=== PATIENT | female | born 1950 | race Caucasian/White ===

== ENCOUNTER 2018-04-27 10:05 | Day surgery (SDC) | payer OTHER ==
[~2018-04-27] VITALS: Ht 170.2 cm; Wt 77.9 kg
[~2018-04-27 10:05] MED LIST: GABA600 PO; HYDR1TAB94; METO50 PO
[2018-04-27] MEDS ORDERED: LISI20 PO (10:51)
[2018-04-27] MEDS ORDERED: ESOM20 (10:52)
== END 2018-04-27 17:17 | disposition home or self-care (01) ==
LOC: ORSCSDS 10:05
PROVIDERS: Orthopaedic Surgery
PROC: 0LQ14ZZ Repair Right Shoulder Tendon, Percutaneous Endoscopic Approach (ICD-10-PCS; principal; 2018-04-27 12:00)
PROC: 0RNJ4ZZ Release Right Shoulder Joint, Percutaneous Endoscopic Approach (ICD-10-PCS; principal; 2018-04-27 12:00)
PROC: 0LS14ZZ Reposition Right Shoulder Tendon, Percutaneous Endoscopic Approach (ICD-10-PCS; principal; 2018-04-27 12:00)
DX: S46.011A Strain of muscle(s) and tendon(s) of the rotator cuff of right shoulder, initial encounter (principal); S46.101A Unspecified injury of muscle, fascia and tendon of long head of biceps, right arm, initial encounter; M75.41 Impingement syndrome of right shoulder; M19.011 Primary osteoarthritis, right shoulder; I10 Essential (primary) hypertension; I48.91 Unspecified atrial fibrillation; M79.7 Fibromyalgia; J44.9 Chronic obstructive pulmonary disease, unspecified; G47.33 Obstructive sleep apnea (adult) (pediatric); Z79.899 Other long term (current) drug therapy; Z87.891 Personal history of nicotine dependence
CPT/HCPCS: C1713; J0171; J1100; J2250; J2370; J2405; J2710; J3010; J7120

== ENCOUNTER 2019-04-02 13:41 | Emergency (ER) | payer OTHER ==
[~2019-04-02] VITALS: Ht 172.7 cm; Wt 81.2 kg
[~2019-04-02 13:41] MED LIST changes: +ALBU90OI61 INH; +ALLERCLEAR10 MG PO; +ATOR40TA PO; +Aspirin EC81 MG PO; +BIOTIN5000 MC1 PO; +CALTRATE 600+D1 EAC1 PO; +CLIN300 PO; +ESOM20; +Hair, Skin & N1 EACH PO; +LISI20 PO; +MELO7.5 PO; +Metoprolol Tar100 MG PO; +Nexium40 MG PO; +Norco 10-325 T1 EACH PO; +Prevacid Soluta30 MG PO; +Toviaz4 MG PO; +ZOLP10 PO; +Zantac150 MG PO
[2019-04-02 14:32] LABS: BASOPHILS ABSOLUTE AUTO 0.06 K/mm3 (0.00-0.23); BASOPHILS PERCENT AUTO 1 % (0-2); EOSINOPHILS ABSOLUTE AUTO 0.36 K/mm3 (0.00-0.68); EOSINOPHILS PERCENT AUTO 5 % (0-6); Hematocrit 39.8 % (33.0-51.0); IMMATURE GRAN ABSOLUTE AUTO 0.02 K/mm3 (0.00-0.10); IMMATURE GRAN PERCENT AUTO 0 % (0-1); LYMPHOCYTES ABSOLUTE AUTO 3.66 K/mm3 (0.84-5.20); LYMPHOCYTES PERCENT AUTO 48 % (21-46); MONOCYTES ABSOLUTE AUTO 0.76 K/mm3 (0.16-1.47); MONOCYTES PERCENT AUTO 10 % (4-13); Mean Corpuscular HGB 29.5 pg (26.0-34.0); Mean Corpuscular HGB Conc 32.7 g/dL (31.5-36.5); Mean Corpuscular Volume 91 fL (80-100); Mean Platelet Volume 11.9 fL (9.1-12.4); NEUTROPHILS ABSOLUTE AUTO 2.72 K/mm3 (1.96-9.15); NEUTROPHILS PERCENT AUTO 36 % (41-73); Platelet Count 215 K/mm3 (150-400); RDW Coefficient Variation 13.9 % (11.7-14.2); RDW Standard Deviation 46.2 fL (35.1-46.3); White Blood Cell Count 7.58 K/mm3 (4.00-11.30)
[2019-04-02 14:56] LABS: Troponin I <0.015 ng/mL (0.000-0.040)
[2019-04-02 15:00] LABS: Alanine Aminotransfer (ALT/SGP 28 U/L (12-78); Albumin, Blood 3.9 g/dL (3.4-5.0); Albumin/Globulin Ratio 1.3 (0.8-1.8); Alk Phos 66 U/L (50-136); Anion Gap 7 mmol/L (6-16); Aspartate Aminotrans (AST/SGOT 18 U/L (12-37); Blood Urea Nitrogen 21 mg/dL (8-24); Bun/Creatinine Ratio 21.1 (12.0-20.0); CO2, Blood 25 mmol/L (21-32); Calcium, Blood 8.7 mg/dL (8.5-10.1); Chloride, Blood 111 mmol/L (98-108); Glomerular Filtration Rate 59 (60-); Glucose, Blood 156 mg/dL (70-99); Potassium, Blood 4.1 mmol/L (3.5-5.5); Sodium, Blood 143 mmol/L (136-145); Total Protein, Blood 6.9 g/dL (6.4-8.2)
[2019-06-01] MEDS ORDERED: Toviaz4 MG PO (16:01)
== END 2019-04-02 15:54 | disposition home or self-care (01) ==
LOC: ER 13:41
PROVIDERS: Physician Assistant
DX: S90.32XA Contusion of left foot, initial encounter (principal); R07.89 Other chest pain; I10 Essential (primary) hypertension; I48.91 Unspecified atrial fibrillation; M19.90 Unspecified osteoarthritis, unspecified site; Z88.1 Allergy status to other antibiotic agents; Z88.2 Allergy status to sulfonamides; Z88.0 Allergy status to penicillin; Z79.899 Other long term (current) drug therapy; Z87.891 Personal history of nicotine dependence; X58.XXXA Exposure to other specified factors, initial encounter
CPT/HCPCS: 36415; 71046; 73630; 80053; 84484; 85025; 93005; 93010; 99284-25

== ENCOUNTER 2019-06-02 06:48 | Day surgery (SDC) | payer OTHER ==
[~2019-06-02] VITALS: Ht 172.7 cm; Wt 82.0 kg
--- NOTE | 2019-06-02 10:30 | NUR ---
ATTEMPTED TO DEFLATE TR BAND. 4CC OF AIR DEPLOYED. SMALL AMOUNT OF BLEEDING NOTED. TR BAND REINFLATED. NO BLEEDING. SOFT AND NONTENDER. VSS. NADN. PT AND FAMILY VERBALIZES UNDERSTANDING WRITTEN AND VERBAL ORDERS.
--- NOTE | 2019-06-02 10:59 | NUR ---
PT TR BAND FULLY DEFLATED. NO BLEEDING OR HEMATOMA NOTED. TOLERATES WELL. VSS. NADN. CALL LIGHT WITHIN REACH.
--- NOTE | 2019-06-02 11:37 | NUR ---
PT DRESSES SELF WITHOUT DIFF. NADN. VSS. R RADIAL TR BAND REMOVED. DOT DRESSING IN PLACE. WITH SPLINT. TOLERATES WELL.
--- NOTE | 2019-06-02 11:47 | NUR ---
PT IV DC'C. CATH INTACT. PRESSURE DSG IN PLACE. PT DC TO HOME VIA S/O BY W/C.
== END 2019-06-02 11:50 | disposition home or self-care (01) ==
LOC: MHTC 06:48
DX: R07.9 Chest pain, unspecified (principal); R94.39 Abnormal result of other cardiovascular function study; R06.00 Dyspnea, unspecified; I77.1 Stricture of artery; I10 Essential (primary) hypertension; J44.9 Chronic obstructive pulmonary disease, unspecified; M06.9 Rheumatoid arthritis, unspecified; K21.9 Gastro-esophageal reflux disease without esophagitis; G47.30 Sleep apnea, unspecified; Z87.891 Personal history of nicotine dependence; Z88.0 Allergy status to penicillin; Z88.1 Allergy status to other antibiotic agents; Z88.2 Allergy status to sulfonamides; Z79.899 Other long term (current) drug therapy
CPT/HCPCS: 93005; 93010; 93454; 99152; 99153; C1769; C1894; J1644; J2250; J3010; J7030; Q9967

== ENCOUNTER → 2019-10-05 | Outpatient (CLI) | payer OTHER | END | disposition home or self-care (01) | LOC: LAB SHORT 11:37 → LAB 11:37 | DX: L08.0 Pyoderma (principal) | CPT/HCPCS: 87070; 87205 ==

== ENCOUNTER 2020-08-21 11:26 | Emergency (ER) | payer OTHER ==
[~2020-08-21] VITALS: Ht 172.7 cm; Wt 81.7 kg
[2020-08-21] MEDS ORDERED: TRAM50 PO (12:40)
== END 2020-08-21 12:54 | disposition home or self-care (01) ==
LOC: ER 11:26
DX: S16.1XXA Strain of muscle, fascia and tendon at neck level, initial encounter (principal); S09.90XA Unspecified injury of head, initial encounter; I10 Essential (primary) hypertension; I48.91 Unspecified atrial fibrillation; Z87.891 Personal history of nicotine dependence; Z79.899 Other long term (current) drug therapy; Z88.2 Allergy status to sulfonamides; Z88.1 Allergy status to other antibiotic agents; Z88.0 Allergy status to penicillin; V49.9XXA Car occupant (driver) (passenger) injured in unspecified traffic accident, initial encounter; Y92.410 Unspecified street and highway as the place of occurrence of the external cause
CPT/HCPCS: 36415; 70450; 72125; 99284-25; J1100

== ENCOUNTER 2021-07-22 11:40 | Inpatient (IN) | payer OTHER ==
[~2021-07-22] VITALS: Ht 172.7 cm; Wt 77.6 kg
[~2021-07-22 11:40] MED LIST changes: +CEPH500 PO; +HYDACE10B PO; +METO50ER PO; +MIRALAX17 GM PO; -Norco 10-325 T1 EACH PO; +SENN187 PO; +SYNTHROID50 MC1 PO; +TRAM50 PO; +XARELTO20 MG PO
[2021-07-22 13:20] LABS: BASOPHILS ABSOLUTE AUTO 0.05 K/mm3 (0.00-0.23); BASOPHILS PERCENT AUTO 0 % (0-2); EOSINOPHILS ABSOLUTE AUTO 0.06 K/mm3 (0.00-0.68); EOSINOPHILS PERCENT AUTO 0 % (0-6); Hematocrit 33.3 % (33.0-51.0); Hemoglobin 10.7 g/dL (11.5-16.0); IMMATURE GRAN ABSOLUTE AUTO 0.13 K/mm3 (0.00-0.10); IMMATURE GRAN PERCENT AUTO 1 % (0-1); LYMPHOCYTES ABSOLUTE AUTO 1.53 K/mm3 (0.84-5.20); LYMPHOCYTES PERCENT AUTO 10 % (21-46); MONOCYTES ABSOLUTE AUTO 1.04 K/mm3 (0.16-1.47); MONOCYTES PERCENT AUTO 7 % (4-13); Mean Corpuscular HGB 29.5 pg (26.0-34.0); Mean Corpuscular HGB Conc 32.1 g/dL (31.5-36.5); Mean Corpuscular Volume 92 fL (80-100); Mean Platelet Volume 10.1 fL (9.1-12.4); NEUTROPHILS ABSOLUTE AUTO 12.82 K/mm3 (1.96-9.15); NEUTROPHILS PERCENT AUTO 82 % (41-73); Platelet Count 378 K/mm3 (150-400); RDW Coefficient Variation 15.6 % (11.7-14.2); RDW Standard Deviation 50.1 fL (35.1-46.3); Red Blood Cell Count 3.63 M/mm3 (3.80-5.20); White Blood Cell Count 15.63 K/mm3 (4.00-11.30)
[2021-07-22 13:32] LABS: International Normalized Ratio 1.03; Prothrombin Time Results 10.8 Sec (9.7-11.5)
[2021-07-22 13:42] LABS: Albumin, Blood 3.5 g/dL (3.4-5.0); Albumin/Globulin Ratio 0.9 (0.8-1.8); Alk Phos 107 U/L (50-136); Anion Gap 8 mmol/L (6-16); Bilirubin, Direct 0.3 mg/dL (0.0-0.3); Bilirubin, Total 1.3 mg/dL (0.1-1.0); Blood Urea Nitrogen 18 mg/dL (8-24); Bun/Creatinine Ratio 33.3 (12.0-20.0); CO2, Blood 24 mmol/L (21-32); Calcium, Blood 9.3 mg/dL (8.5-10.1); Chloride, Blood 106 mmol/L (98-108); Creatinine, Blood 0.54 mg/dL (0.40-1.00); Glomerular Filtration Rate >60 (60-); Glucose, Blood 188 mg/dL (70-99); Potassium, Blood 3.8 mmol/L (3.5-5.5); Sodium, Blood 138 mmol/L (136-145); Total Protein, Blood 7.5 g/dL (6.4-8.2)
[2021-07-22 13:43] LABS: Alanine Aminotransfer (ALT/SGP 35 U/L (12-78); Aspartate Aminotrans (AST/SGOT 16 U/L (12-37)
[2021-07-23 04:23] LABS: BASOPHILS ABSOLUTE AUTO 0.04 K/mm3 (0.00-0.23); BASOPHILS PERCENT AUTO 0 % (0-2); EOSINOPHILS PERCENT AUTO 2 % (0-6); Hematocrit 31.5 % (33.0-51.0); IMMATURE GRAN ABSOLUTE AUTO 0.06 K/mm3 (0.00-0.10); IMMATURE GRAN PERCENT AUTO 1 % (0-1); LYMPHOCYTES ABSOLUTE AUTO 2.16 K/mm3 (0.84-5.20); LYMPHOCYTES PERCENT AUTO 21 % (21-46); MONOCYTES ABSOLUTE AUTO 1.06 K/mm3 (0.16-1.47); MONOCYTES PERCENT AUTO 10 % (4-13); Mean Corpuscular HGB 29.1 pg (26.0-34.0); Mean Corpuscular HGB Conc 31.7 g/dL (31.5-36.5); Mean Corpuscular Volume 92 fL (80-100); Mean Platelet Volume 10.3 fL (9.1-12.4); NEUTROPHILS ABSOLUTE AUTO 6.66 K/mm3 (1.96-9.15); NEUTROPHILS PERCENT AUTO 65 % (41-73); Platelet Count 355 K/mm3 (150-400); RDW Coefficient Variation 15.9 % (11.7-14.2); RDW Standard Deviation 52.5 fL (35.1-46.3); Red Blood Cell Count 3.44 M/mm3 (3.80-5.20); White Blood Cell Count 10.18 K/mm3 (4.00-11.30)
[2021-07-23 04:36] LABS: Prothrombin Time Results 10.5 Sec (9.7-11.5)
[2021-07-23 04:50] LABS: Anion Gap 8 mmol/L (6-16); Blood Urea Nitrogen 18 mg/dL (8-24); Bun/Creatinine Ratio 28.3 (12.0-20.0); CO2, Blood 26 mmol/L (21-32); Calcium, Blood 9.2 mg/dL (8.5-10.1); Chloride, Blood 106 mmol/L (98-108); Creatinine, Blood 0.64 mg/dL (0.40-1.00); Glomerular Filtration Rate >60 (60-); Glucose, Blood 98 mg/dL (70-99); Potassium, Blood 4.6 mmol/L (3.5-5.5); Sodium, Blood 140 mmol/L (136-145)
--- NOTE | 2021-07-23 05:39 | NUR ---
PT ARRIVAL TO UNIT AT APPROX 194. R LOWER ABD QUADRANT: +[employer] +ECCHMOSIS TO SUPRAPUBIC AREA. PAIN MANAGED W/ PAIN MEDICATIONS-SEE EMAR. DR. SEQUEIRA NOTIFIED OF PT REQUEST FOR HOME DOSE OF AMBIEN-ORDERED.WBC 15.63. NPO SINCE MIDNIGHT FOR POSSIBLE EVACUATION W/ DRAIN PLACEMENT. NO ISSUES THROUGHOUT SHIFT.
--- NOTE | 2021-07-23 08:06 | NUR ---
NOTIFIED DR LEMA OF PATIENTS NEW PAIN IN LEFT SHOULDER AND COMPLAINS OF BEING HOT/CLAMMY. THIS IS NEW FOR PATIENT. DOES COMPLAIN OF RIGHT RIB PAIN AND RLQ PAIN WELL. WAS MEDICATED WITH IV PAIN MEDS PER ORDERS. EKG OBTAINED. NO NEW ORDERS RECIEVED.
[2021-07-23 09:49] LABS: Influenza A, PCR NEGATIVE (NEGATIVE); Influenza B, PCR NEGATIVE (NEGATIVE); Resp Syncytial Virus, PCR NEGATIVE (NEGATIVE); SARS-Cov-2 (COVID-19) PCR, MMC NEGATIVE (NEGATIVE)
--- NOTE | 2021-07-23 12:14 | NUR ---
TRANSFERED PT TO [facility] VIA GURNY FROM FLOOR. History, Chart, Medications and Allergies reviewed before start of procedure. Lungs clear T/O to Auscultation. Patient confirms NPO status and agrees with scheduled surgery. Pre-Op teaching done. Pt verbalizes understanding.
--- NOTE | 2021-07-23 13:19 | NUR ---
07/23/21 1319 Koki Mcconnell NO PREOP ANTIBIOTICS ORDERED PER .
--- NOTE | 2021-07-23 14:46 | NUR ---
PATIENT ARRIVED TO FLOOR FROM PACU AT 1420, AWAKE AND ALERT. SHE IS NOW SLEEPING. VS STABLE. NO SIGNS OR SYMPTOMS ACUTE DISTRESS NOTED. DRESSING TO [facility] CDI. CALL LIGHT AND WATER IN EASY REACH. ABLE TO MAKE NEEDS AND WANTS KNOWN.
--- NOTE | 2021-07-24 06:08 | NUR ---
VSS. ABD PAIN MANAGED W/ PO/IV PAIN MEDICATIONS-SEE EMAR. SMALL AMOUNT OF SEROSANGUINOUS DRAINAGE TO R LOWER ABD [employer] GAUZE/MEDIPORE TAPE. STANDBY ASSIST TO STAND/PIVOT TO BSC. NO ISSUES THROUGHOUT SHIFT.
--- NOTE | 2021-07-24 15:06 | NUR ---
PATIENT HAD A GOOD DAY TODAY. PATIENT WORKED WITH THERAPY, THEY RECOMMEND PATIENT TO DC TO SNF AT [facility]. PT THINKS PATIENT IS CAPABLE OF TRANSFERING SELF TO BSC AND BACK TO BED WITH NO ASSIST. PATIENT NEEDS SBA WITH LONGER WALKS. MEDICATED FOR PAIN PER ORDERS, SEE EMAR. DR LEMA CHANGED FREQUENCY OF PAIN MED AND HAS SEEMED TO HELP WITH PATIENTS PAIN. DRESSING TO RLQ CHANGED, TOLERATED WELL.
--- NOTE | 2021-07-25 04:55 | NUR ---
Pt is in bed at this time where she remains much of the night and is resting comfortably in stable condition. She is alert and oriented, is pleasant. She is assisted with her care and ADLs, medicated as indicated, medicated PRN for pain. Her call light was given to her, answered and encouraged to call for help when assistance is needed as she is monitored.
--- NOTE | 2021-07-25 13:33 | NUR ---
PATIENT CURRENTLY WORKING WITH PT. PATIENT IS AAO X 4. ABLE TO MAKE NEEDS AND WANTS KNOWN. CALL LIGHT AND WATER IN EASY REACH. MEDICATED FOR PAIN WITH PO PAIN MEDS TODAY PER ORDERS AND HAVE BEEN EFFECTIVE FOR PAIN. PATIENT HAS BEEN IN A PLEASANT MOOD TODAY. IV REMOVED TO [facility] PER PATIENT REQUEST, TOLERATED WELL. WILL MONITOR.
--- NOTE | 2021-07-26 04:23 | NUR ---
PT IS IN BED AT THIS TIME AND IS RESTING COMFORTABLY IN STABLE CONDITION. SHE IS ALERT AND ORIENTED, MEDICATED FOR PAIN INDICATED, MEDICATED WITH OTHER ORDERED MEDS. SHE IS ASSISTED WITH HER CARE AND ADLS, ASSISTED WITH TOLETING AND BATHROOM NEEDS, SUPERVISED WITH AMBULATION. CALL LIGHT PLACED NEAR HER AND ENCOURAGED TO CALL FOR HELP WHEN ASSISTANCE IS NEEDED SHE IS MONITORED.
[2021-07-26 09:27] LABS: Source, Urine Clean Catch
[2021-07-26 09:38] LABS: Appearance, Urine Cloudy (Clear); Bilirubin, Urine Neg (Neg); Blood, Urine 2+ (Neg); Color, Urine Yellow (P-Yellow); Glucose Qualitative, Urine Neg (Neg); Ketones, Urine Neg (Neg); Leukocyte Esterase, Urine 3+ (Neg); Nitrite, Urine Pos (Neg); Protein, Urine 2+ (Neg); Specific Gravity, Urine 1.015 (1.003-1.022); Urobilinogen, Urine NORM (Normal)
[2021-07-26 10:03] LABS: Bacteria Many /hpf; Squamous Epithelial Cells Rare /hpf (Few); White Blood Cells, Urine 50-100 /hpf (0-5)
[2021-07-26 10:07] LABS: Transitional Epithelial Cells Rare /hpf (0-Rare)
--- NOTE | 2021-07-26 17:15 | NUR ---
SHIFT SUMMARY PATIENT ALERT, ORIENTED, PLEASANT, AND COOPERATIVE THROUGHOUT SHIFT. TOLERATING CARDIAC DIET. PAIN TO RIGHT SIDE/RIBS CONTROLLED WITH PO PAIN MEDS. INDEPENDENT IN ROOM TO BATHROOM. REPORTED BURNING URINATION WITH CLOUDY URINE. SAMPLE SENT TO LAB. UTI CONFIRMED. HOSP ORDERED PO KEFLEX AND PYRIDIUM. PATIENT SHOWERED THIS SHIFT. GAUZE DRESSING CHANGED TO MARCUS DRAIN. REFUSED PHYSICAL THERAPY THIS SHIFT. PLAN TO DISCHARGE TO SNF. WILL REPORT TO SOCIAL MEDIA DIRECTOR RN.
--- NOTE | 2021-07-27 06:01 | NUR ---
SHIFT SUMMARY A/O X4 T/O SHIFT, PAIN MANAGED PER EMAR, AMBIEN GIVEN FOR SLEEP THOUGH PT WAS AWAKE OFF AND ON T/O THE FIRST HALF OF THE SHIFT, DRESSING HAS SCANT AMT DRAINAGE. NO ACUTE EVENTS THIS SHIFT. CALL LIGHT IN REACH, WILL CTM AND REPORT TO DAY RN.
--- NOTE | 2021-07-27 15:22 | NUR ---
DRESSNG OVER RLQ MARCUS DRAIN CHANGED. NEW 4X4 GAUZE AND TEGADERM APPLIED. SMALL AMOUNT OF SEROUS FLUID FROM DRAIN. WILL CONTINUE TO MONITOR.
--- NOTE | 2021-07-27 16:18 | NUR ---
DISCUSSED PLAN TO RESTART XARELTO WITH DR. LEMA. PER HOSPITALIST WAITING FOR OK FROM SURGERY TO RESTART XARELTO. DR. LEMA STATED HE WOULD REVIEW DR. MORALES'S NOT FROM 07/24/21 REGARDING THIS MEDICATION.
--- NOTE | 2021-07-27 16:38 | NUR ---
SHIFT SUMMARY PT REMAINS IN THE HOSPITAL WAITING FOR SNF PLACEMENT. PT COMPLAINS OF R RIB PAIN, RLQ ABD PAIN PT REPORTS WITH MOVMENT. PAIN MANAGED WITH PO PAIN MEDICATION. PT IS A 1 ASSIST. SHE PARTICIPATED WITH THERAPY TODAY. MARCUS DRAIN CONTINUES TO DRAIN SEROUS FLUID, DRESSING CHANGED. PT IS TOLERATING PO. VSS. WILL MONITOR UNTIL REPORT TO NOC RN.
--- NOTE | 2021-07-28 07:40 | NUR ---
SHIFT SUMMARY POD5 ABD WALL HEMATOMA I&D, DRESSING C/D/I, PAIN CONTROLLED PER EMAR, TOLERATING DIET, NO ACUTE EVENTS THIS SHIFT, CALL LIGHT IN REACH, REPORT GIVEN TO DAY RN.
--- NOTE | 2021-07-28 16:40 | NUR ---
SHIFT SUMMARY PT IS ALERT AND ORIENTED. SHE CONTINUED TO HAVE PAIN AT RIGHT RIBS. PT ALSO STATED SHE HAS MILD BACK PAIN. PAIN HAS BEEN MANAGED WITH PO PAIN MEDICATION. DRESSING ON RLQ WAS CHANGED WITH A TEGADERM DRESSING. THERE WAS A LIGHT AMOUNT OF SEROUS FLUID FROM THE DRAINAGE SITE.
--- NOTE | 2021-07-28 16:51 | NUR ---
SHIFT SUMMARY PT IS POD#5 FOR HEMATOMA EVACUATION. PT COMPLAINS OF PAIN TO R RIBS WHICH IS MANAGED WITH 1 NORCO; ALTHOUGH PT CONSISTANTLY RATES HIGH ON THE PAIN SCALE. PT WAS OOB FOR A SHOWER AND SAT UP TO THE CHAIR TODAY. PT TOLERATING PO. WAITING FOR POSSIBLE SNF PLACMENT TOMORROW. VSS. WILL MONITOR UNTIL REPORT TO MARISA TAN.
--- NOTE | 2021-07-29 05:55 | NUR ---
SHIFT SUMMARY POD6 RLQ HEMATOMA I&D, A/O X4, VSS, TOLERATING DIET, PAIN WELL MANAGED, DRESSING SHOWS SMALL AMT DRAINAGE WHICH IS SEROUS IN NATURE, PT REPORTS ICE PACKS HELPING c PAIN MANAGEMENT WELL. NO ACUTE EVENTS THIS SHIFT. CALL LIGHT IN REACH, WILL CTM AND REPORT TO DAY RN.
--- NOTE | 2021-07-29 08:50 | NUR ---
PATTIENT AWAKE AND ALERT THIS AM. NO SIGNS OR SYMPTOMS ACUTE DISTRESS NOTED. CALL LIGHT AND WATER IN EASY REACH. ABLE TO MAKE NEEDS AND WANTS KNOWN.
--- NOTE | 2021-07-29 17:06 | NUR ---
PATIENT HAD A GOOD DAY TODAY. PATIENT WORKED WITH THERAPY TODAY AND DID WELL. NO SIGNS OR SYMPTOMS ACUTE DISTRESS NOTED. CALL LIGHT AND WATER IN EASY REACH. ABLE TO MAKE NEEDS AND WANTS KNOWN. AAO X 4. DRESSING CHANGED TO RLQ TODAY, TOLERATED WELL. MEDICATED FOR PAIN PER ORDERS-SEE EMAR. PAIN MEDS EFFECTIVE. UP TO BATHROOM UNASSISTED. STEADY ON FEET. WILL MONITOR.
--- NOTE | 2021-07-30 04:17 | NUR ---
SHIFT SUMMARY PT A&O X4 AND IN PLEASENT MOOD T/O SHIFT. TOLERATING PO INTAKE WELL DENIES N/V. PAIN MANAGED PER EMAR, REPOSITIONING, AND CRYOTHERAPY. DRESSING TO LLQ CDI. VSS. CALL LIGHT W/IN REACH.
[2021-07-30] MEDS ORDERED: CEPH500 PO (11:28)
--- NOTE | 2021-07-30 13:09 | NUR ---
DISCHARGE: DISCHARGE INSTUCTIONS GIVEN TO PATIENT AT THIS TIME. VERBALIZED UNDERSTANDING. MED LIST FAXED TO [facility]. NO SIGNS OR SYMPTOMS ACUTE DISTRESS NOTED. MEDICATED FOR PAIN BEFORE LEAVING PER PATIENTS REQUEST AND PER ORDERS-SEE EMAR.
--- NOTE | 2021-07-30 15:47 | NUR ---
Patient is a [facility] patient who was transferred to [facility] on 07/22/2021 due to abdominal wall hernia. Patient discharged today with resumption of home health orders. Gathered supporting documentation for resumption (face sheet, med list, and H&P) and faxed to [facility] for review. No further interventions required. Stormy Decker Referral Liaison
== END 2021-07-30 13:04 | disposition home health service (06) | DRG 580 ==
LOC: ER 11:40 → SURS 11:41 → ERHOLD 11:41 → SURS 19:46
PROVIDERS: Anesthesiology; Internal Medicine; Student in an Organized Health Care Education/Training Program; ADMIT Family Medicine
PROC: 0W9F0ZZ Drainage of Abdominal Wall, Open Approach (ICD-10-PCS; principal; 2021-07-24)
DX: S30.1XXA Contusion of abdominal wall, initial encounter (principal); S22.41XA Multiple fractures of ribs, right side, initial encounter for closed fracture; N39.0 Urinary tract infection, site not specified; D62 Acute posthemorrhagic anemia; K46.9 Unspecified abdominal hernia without obstruction or gangrene; I10 Essential (primary) hypertension; I48.0 Paroxysmal atrial fibrillation; G89.4 Chronic pain syndrome; E03.9 Hypothyroidism, unspecified; E78.5 Hyperlipidemia, unspecified; K21.9 Gastro-esophageal reflux disease without esophagitis; M19.90 Unspecified osteoarthritis, unspecified site; D64.9 Anemia, unspecified; Z90.710 Acquired absence of both cervix and uterus; Z98.890 Other specified postprocedural states; Z87.891 Personal history of nicotine dependence; Z88.0 Allergy status to penicillin; Z88.1 Allergy status to other antibiotic agents; Z88.2 Allergy status to sulfonamides; Z79.01 Long term (current) use of anticoagulants; Z79.899 Other long term (current) drug therapy; V49.50XA Passenger injured in collision with unspecified motor vehicles in traffic accident, initial encounter; Y92.410 Unspecified street and highway as the place of occurrence of the external cause
CPT/HCPCS: 0241U; 36415; 71045; 74177; 80048; 80076; 81001; 83605; 83735; 84145; 84484; 85025; 85610; 85730; 87077; 87086; 87186; 93005; 93010; 94760; 96374; 96375; 96376; 97110; 97116; 97140; 97161; 97165; 97530; 99285-25; A9270; G0378; J1100; J2250; J2270; J2405; J2704; J3010; J7120; Q9967

== ENCOUNTER → 2022-12-30 | Outpatient (CLI) | payer OTHER ==
[2022-12-30 13:25] LABS: Adenovirus F 40/41 Not Detected (NOT DETECT); Campylobacter Sp Not Detected (NOT DETECT); Cryptosporidium Not Detected (NOT DETECT); Cyclospora Cayetanensis Not Detected (NOT DETECT); E. Coli O157 Not Detected (NOT DETECT); Entamoeba Histolytica Not Detected (NOT DETECT); Enteroaggregative E. coli-EAEC Not Detected (NOT DETECT); Enteropathogenic E. coli-EPEC Not Detected (NOT DETECT); Enterotoxigenic E. coli-ETEC Not Detected (NOT DETECT); Giardia Lamblia Not Detected (NOT DETECT); Plesiomonas Shigelloides Not Detected (NOT DETECT); Salmonella Sp Not Detected (NOT DETECT); Shiga Toxin-prod E. coli-STEC Not Detected (NOT DETECT); Shigella/Enteroin E. coli-EIEC Not Detected (NOT DETECT); Vibrio Cholerae Not Detected (NOT DETECT); Vibrio Sp Not Detected (NOT DETECT); Yersinia Enterocolitica Not Detected (NOT DETECT)
[2022-12-30 13:26] LABS: Astrovirus Not Detected (NOT DETECT); Norovirus GI/GII Detected (NOT DETECT); Rotavirus A Not Detected (NOT DETECT); Sapovirus Not Detected (NOT DETECT)
== END | disposition home or self-care (01) ==
LOC: LAB 07:00 → LAB SHORT 07:00
PROVIDERS: Nurse Practitioner
DX: K52.9 Noninfective gastroenteritis and colitis, unspecified (principal)
CPT/HCPCS: 87507

== ENCOUNTER → 2024-02-15 | Outpatient (CLI) | payer OTHER ==
[~2024-02-15] MED LIST changes: +OXYC5 PO
[2024-02-15 17:32] LABS: U Amphetamine Screen Not Detected; U Barbituate Screen Not Detected; U Benzodiazapine Screen Not Detected; U Buprenorphine Screen Not Detected; U Cannabinoids Screen Not Detected; U Cocaine Screen Not Detected; U Methadone Screen Not Detected; U Methamphetamine Screen Not Detected; U Opiates Screen DETECTED; U Oxycodone Screen Not Detected; U Phencyclidine Screen Not Detected
[2024-02-15 17:39] LABS: BASOPHILS ABSOLUTE AUTO 0.04 K/mm3 (0.00-0.23); BASOPHILS PERCENT AUTO 1 % (0-2); EOSINOPHILS ABSOLUTE AUTO 0.37 K/mm3 (0.00-0.68); EOSINOPHILS PERCENT AUTO 5 % (0-6); Hematocrit 42.1 % (33.0-51.0); Hemoglobin 13.6 g/dL (11.5-16.0); IMMATURE GRAN ABSOLUTE AUTO 0.02 K/mm3 (0.00-0.10); IMMATURE GRAN PERCENT AUTO 0 % (0-1); LYMPHOCYTES ABSOLUTE AUTO 2.91 K/mm3 (0.84-5.20); LYMPHOCYTES PERCENT AUTO 38 % (21-46); MONOCYTES PERCENT AUTO 9 % (4-13); Mean Corpuscular HGB 29.8 pg (26.0-34.0); Mean Corpuscular HGB Conc 32.3 g/dL (31.5-36.5); Mean Corpuscular Volume 92 fL (80-100); Mean Platelet Volume 11.9 fL (9.1-12.4); NEUTROPHILS PERCENT AUTO 48 % (41-73); Platelet Count 231 K/mm3 (150-400); RDW Coefficient Variation 14.7 % (11.7-14.2); RDW Standard Deviation 49.7 fL (35.1-46.3); Red Blood Cell Count 4.57 M/mm3 (3.80-5.20); White Blood Cell Count 7.74 K/mm3 (4.00-11.30)
[2024-02-15 17:59] LABS: Alanine Aminotransfer (ALT/SGP 36 U/L (12-78); Albumin, Blood 4.2 g/dL (3.4-5.0); Albumin/Globulin Ratio 1.4 (0.8-1.8); Alk Phos 69 U/L (50-136); Anion Gap 8 mmol/L (3-11); Bilirubin, Total 1.2 mg/dL (0.1-1.0); Blood Urea Nitrogen 17 mg/dL (8-24); CHOL/HDL RATIO 2.8; CO2, Blood 28 mmol/L (21-32); Calcium, Blood 9.2 mg/dL (8.5-10.1); Chloride, Blood 107 mmol/L (98-108); Cholesterol 125 mg/dL (50-200); Free Thyroxine 1.05 ng/dL (0.70-1.60); Globulin, Blood 3.1 g/dL (2.2-4.0); Glucose, Blood 146 mg/dL (70-99); HDL Cholesterol 44 mg/dL (>39); LDL/HDL RATIO 0.4; Low Density Lipoprotein Chol 18 mg/dL (0-110); Potassium, Blood 3.8 mmol/L (3.5-5.5); Sodium, Blood 139 mmol/L (136-145); Total Protein, Blood 7.3 g/dL (6.4-8.2); Triglycerides 313 mg/dL (30-160); Very Low Density Lipoprot Chol 62 mg/dL (6-32)
[2024-02-15 18:04] LABS: Aspartate Aminotrans (AST/SGOT 22 U/L (12-37); Bun/Creatinine Ratio 22.4 (12.0-20.0); Creatinine, Blood 0.76 mg/dL (0.40-1.00); Glomerular Filtration Rate 84 (60-)
== END ==
LOC: LAB 14:41 → LAB SHORT 14:41
PROVIDERS: Nurse Practitioner Family
DX: I10 Essential (primary) hypertension (principal); E03.9 Hypothyroidism, unspecified; Z79.899 Other long term (current) drug therapy
CPT/HCPCS: 80053; 80061; 84439; 84443; 85025

== ENCOUNTER → 2025-02-23 | Outpatient (CLI) | payer OTHER ==
[2025-02-23 17:49] LABS: BASOPHILS ABSOLUTE AUTO 0.05 K/mm3 (0.00-0.23); BASOPHILS PERCENT AUTO 1 % (0-2); EOSINOPHILS ABSOLUTE AUTO 0.19 K/mm3 (0.00-0.68); EOSINOPHILS PERCENT AUTO 2 % (0-6); Hematocrit 40.5 % (33.0-51.0); Hemoglobin 13.2 g/dL (11.5-16.0); IMMATURE GRAN ABSOLUTE AUTO 0.07 K/mm3 (0.00-0.10); IMMATURE GRAN PERCENT AUTO 1 % (0-1); LYMPHOCYTES ABSOLUTE AUTO 2.92 K/mm3 (0.84-5.20); LYMPHOCYTES PERCENT AUTO 30 % (21-46); MONOCYTES ABSOLUTE AUTO 0.97 K/mm3 (0.16-1.47); MONOCYTES PERCENT AUTO 10 % (4-13); Mean Corpuscular HGB 30.3 pg (26.0-34.0); Mean Corpuscular HGB Conc 32.6 g/dL (31.5-36.5); Mean Corpuscular Volume 93 fL (80-100); NEUTROPHILS ABSOLUTE AUTO 5.42 K/mm3 (1.96-9.15); NEUTROPHILS PERCENT AUTO 56 % (41-73); Platelet Count 197 K/mm3 (150-400); RDW Coefficient Variation 14.1 % (11.7-14.2); RDW Standard Deviation 47.9 fL (35.1-46.3); Red Blood Cell Count 4.35 M/mm3 (3.80-5.20); White Blood Cell Count 9.62 K/mm3 (4.00-11.30)
== END ==
LOC: LAB 16:17 → LAB SHORT 16:17
PROVIDERS: Nurse Practitioner Family
DX: B34.9 Viral infection, unspecified (principal)
CPT/HCPCS: 85025

== ENCOUNTER → 2025-06-21 | Outpatient (CLI) | payer OTHER ==
[2025-06-21 18:27] LABS: Thyroid Stimulating Hormone 2.03 uIU/mL (0.360-4.800)
== END ==
LOC: LAB SHORT 12:06 → LAB 12:06
PROVIDERS: Nurse Practitioner Family
DX: E03.9 Hypothyroidism, unspecified (principal)
CPT/HCPCS: 84439; 84443